=== PATIENT | female | born 1925 | race Caucasian/White ===

== ENCOUNTER 2017-01-26 21:26 | Emergency (ER) | payer MEDICARE, BC ==
[2017-01-26] MEDS ORDERED: Albuterol 0.083% 2.5 MG/3 ML Neb Soln NEB ONE ×2 (22:18→22:56)
--- NOTE | 2017-01-26 22:22 | EDM.PDOC ---
[id number]: PNEUMONIA Time Seen by Provider: 01/26/17 22:16 Source of Information: Reports: Patient, Family History Limitations: Reports: No Limitations - History of Present Illness INITIAL COMMENTS - FREE TEXT/NARRATIVE: pt gets dehydrated easily. She has a bad cough with alot of congestion. Onset: Gradual Duration: Day(s):, Getting Worse Location: Reports: Chest, Other (pt is feeling sob. ) Associated Symptoms: Reports: Cough, Fever/Chills, Shortness of Breath - Related Data Allergies Allergy/AdvReac Type Severity Reaction Status Date / Time Penicillins Allergy Rash Verified 01/26/17 22:00 Home Meds: Home Meds Allopurinol 300 mg PO DAILY 04/01/14 [History] Calcitonin ([place]) [Miacalcin Nasal [place]] 1 spray NS DAILY 04/01/14 [History] Cholecalciferol (Vitamin D3) [Vitamin D3] 2,000 unit PO DAILY 04/01/14 [History] Colesevelam [Welchol] 0.5 mg PO BID 04/01/14 [History] Flaxseed Oil [Flax Oil] 1,000 mg PO DAILY 04/01/14 [History] Metoprolol Tartrate 50 mg PO DAILY 04/01/14 [History] Mv, Min #36/Iron,Carbonyl/FA [Geritol Complete Tablet] 1 each PO DAILY 04/01/14 [History] [place]-3 Fatty Acids/Fish Oil [Fish Oil 1,200 mg Softgel] 1 each PO DAILY [History] Triamterene/Hydrochlorothiazid [Triamterene-HCTZ 75-50 MG] 0.5 each PO DAILY [History] Acetaminophen/HYDROcodone [[place] 325-5 MG] 1 - 2 tab PO Q6H PRN #30 tab [Rx] Garlic 100 mg PO DAILY 08/05/14 [History] Lisinopril 10 mg PO DAILY 08/05/14 [History] Albuterol [IMW: Albuterol HFA] 2 puff INH QID PRN 01/27/17 [History] Social & Family History - Tobacco Use Smoking Status *Q: Former Smoker Years of Tobacco use: 30 Used Tobacco, but Quit: Yes Month Tobacco Last Used: 30yrs Second Hand Smoke Exposure: No - Caffeine Use Caffeine Use: Reports: Coffee - Alcohol Use Days Per Week of Alcohol Use: 0 Number of Drinks Per Day: 2 Total Drinks Per Week: 0 - Recreational Drug Use Recreational Drug Use: No ED ROS GENERAL - Review of Systems Review Of Systems: See Below Constitutional: Reports: Fever, Chills, Malaise HEENT: Reports: No Symptoms Respiratory: Reports: Shortness of Breath, Wheezing Cardiovascular: Reports: No Symptoms Endocrine: Reports: No Symptoms GI/Abdominal: Reports: No Symptoms : Reports: No Symptoms ED EXAM, GENERAL - Physical Exam Exam: See Below Free Text/Narrative:: Pt arrived feeling sob and coughing alot for the past 2 days. Exam Limited By: No Limitations General Appearance: Alert, Mild Distress Ears: Normal TMs Nose: Normal Inspection Throat/Mouth: Normal Inspection Head: Atraumatic Neck: Normal Inspection Respiratory/Chest: Decreased Breath Sounds, Rales, Wheezing Cardiovascular: Regular Rate, Rhythm GI/Abdominal: Soft, Non-Tender Rectal (Female) Exam: Deferred Back Exam: Normal Inspection Extremities: Normal Inspection, Other ( no sig edema. ) Neurological: Alert, Oriented, Normal Cognition Course - Vital Signs Last Recorded V/S: Last Vital Signs Temp 38.3 C H 01/26/17 22:54 Pulse 117 H 01/26/17 22:51 Resp 20 01/26/17 22:51 BP 144/55 H 01/27/17 00:20 Pulse Ox 95 01/26/17 22:51 - Orders/Labs/Meds Labs: Laboratory Tests 01/26/17 01/26/17 01/26/17 Range/Units 22:24 22:24 23:00 WBC 12.1 H (4.5-11.0) K/uL RBC 3.74 (3.30-5.50) M/uL Hgb 10.6 L (12.0-15.0) g/dL Hct 32.2 L (36.0-48.0) % MCV 86 (80-98) fL MCH 28 (27-31) pg MCHC 33 (32-36) % Plt Count 170 (150-400) K/uL Neut % (Auto) 84 H (36-66) % Lymph % (Auto) 9 L (24-44) % [place] % (Auto) 7 H (2-6) % Eos % (Auto) 0 L (2-4) % Baso % (Auto) 0 (0-1) % Sodium 134 L (140-148) mmol/L Potassium 4.0 (3.6-5.2) mmol/L Chloride 98 L (100-108) mmol/L Carbon Dioxide 27 (21-32) mmol/L Anion Gap 13.0 (5.0-14.0) mmol/L BUN 33 H (7-18) mg/dL Creatinine 1.1 H D (0.6-1.0) mg/dL Est Cr Clr Drug Dosing 27.42 mL/min Estimated GFR (MDRD) 47 L (>60) Glucose 175 H (74-106) mg/dL Calcium 9.5 (8.5-10.1) mg/dL Total Bilirubin 0.7 (0.2-1.0) mg/dL AST 15 (15-37) U/L ALT 19 (12-78) U/L Alkaline Phosphatase 90 (46-116) U/L Egb-[id number] Pept 1545 H (5-450) pg/mL Total Protein 7.2 (6.4-8.2) g/dL Albumin 3.1 L (3.4-5.0) g/dL Globulin 4.1 H (2.3-3.5) g/dL Albumin/Globulin Ratio 0.8 L (1.2-2.2) Urine Color Urine Appearance Urine pH (4.5-8.0) Ur Specific [place] (1.008-1.030) Urine Protein (NEGATIVE) mg/dL Urine Glucose (UA) (NEGATIVE) mg/dL Urine Ketones (NEGATIVE) mg/dL Urine Occult Blood (NEGATIVE) Urine Nitrite (NEGATIVE) Urine Bilirubin (NEGATIVE) Urine Urobilinogen (NORMAL) mg/dL Ur Leukocyte Esterase (NEGATIVE) Urine RBC (0-5) Urine WBC (0-5) Ur Epithelial Cells Amorphous Sediment Urine Bacteria Urine Mucus 01/27/17 Range/Units 00:57 WBC (4.5-11.0) K/uL RBC (3.30-5.50) M/uL Hgb (12.0-15.0) g/dL Hct (36.0-48.0) % MCV (80-98) fL MCH (27-31) pg MCHC (32-36) % Plt Count (150-400) K/uL Neut % (Auto) (36-66) % Lymph % (Auto) (24-44) % [place] % (Auto) (2-6) % Eos % (Auto) (2-4) % Baso % (Auto) (0-1) % Sodium (140-148) mmol/L Potassium (3.6-5.2) mmol/L Chloride (100-108) mmol/L Carbon Dioxide (21-32) mmol/L Anion Gap (5.0-14.0) mmol/L BUN (7-18) mg/dL Creatinine (0.6-1.0) mg/dL Est Cr Clr Drug Dosing mL/min Estimated GFR (MDRD) (>60) Glucose (74-106) mg/dL Calcium (8.5-10.1) mg/dL Total Bilirubin (0.2-1.0) mg/dL AST (15-37) U/L ALT (12-78) U/L Alkaline Phosphatase (46-116) U/L Ric-H-Lgvbklacsji Pept (5-450) pg/mL Total Protein (6.4-8.2) g/dL Albumin (3.4-5.0) g/dL Globulin (2.3-3.5) g/dL Albumin/Globulin Ratio (1.2-2.2) Urine Color Yellow Urine Appearance Clear Urine pH 5.0 (4.5-8.0) Ur Specific [place] 1.015 (1.008-1.030) Urine Protein Negative (NEGATIVE) mg/dL Urine Glucose (UA) Normal (NEGATIVE) mg/dL Urine Ketones 15 H (NEGATIVE) mg/dL Urine Occult Blood Trace (NEGATIVE) Urine Nitrite Negative (NEGATIVE) Urine Bilirubin Negative (NEGATIVE) Urine Urobilinogen Normal (NORMAL) mg/dL Ur Leukocyte Esterase Negative (NEGATIVE) Urine RBC 0-5 (0-5) Urine WBC 0-5 (0-5) Ur Epithelial Cells Not seen Amorphous Sediment Moderate Urine Bacteria Not seen Urine Mucus Few Meds: Medications Discontinued Medications Generic Name Dose Route Start Last Admin Trade Name Freq PRN Reason Stop Dose Admin Acetaminophen 650 mg 01/26/17 22:40 01/26/17 22:54 Tylenol PO 01/26/17 22:41 650 mg NOW ONE Administration Albuterol 2.5 mg 01/26/17 22:18 01/26/17 22:23 Proventil Neb Soln NEB 01/26/17 22:19 2.5 mg ONETIME ONE Administration Albuterol 2.5 mg 01/26/17 22:56 01/26/17 23:35 Proventil Neb Soln NEB 01/26/17 22:57 2.5 mg ONETIME ONE Administration Furosemide 40 mg 01/26/17 23:58 01/27/17 00:20 Lasix IVPUSH 01/26/17 23:59 40 mg ONETIME ONE Administration Ceftriaxone Sodium 1 gm/ 50 mls @ 100 mls/hr 01/26/17 22:55 01/26/17 23:35 Sodium Chloride IV 01/26/17 23:24 100 mls/hr ONETIME ONE Administration Methylprednisolone Sodium Succinate 125 mg 01/26/17 22:55 01/26/17 23:35 Solu-Medrol IVPUSH 01/26/17 22:56 125 mg ONETIME ONE Administration Sodium Chloride 10 ml 01/26/17 22:53 01/26/17 23:35 Saline Flush FLUSH 10 ml ASDIRECTED PRN Administration Keep Vein Open - Re-Assessments/Exams Free Text/Narrative Re-Assessment/Exam: 01/26/17 22:46 pt was found to have a mildly elevated wbc. Her influ a and b are neg. chest xray reveals shows alot of chronic changes but it is not alot different then her old film. 01/26/17 22:54 01/27/17 00:24 pt was found to have mild elevation in the bnp. She was given lasix 40mg iv. She was also given solumedrol 125 iv. She had 2 nebs while she was here. She was given rocephen 1 gm iv. Pt was doing better by the time she left the Er. Departure - Departure Time of Disposition: 01:15 Disposition: Home, Self-Care 01 Condition: fair Clinical Impression: Bronchitis, Bronchospasm - Discharge Information Instructions: Acute Bronchitis, [id number] Referrals: Oleksandr Meneses MD [Primary Care Provider] - Forms: ED Department Discharge Care Plan Goals: albuterol inhaler 2 puffs qid, with a small education specialist,, rtc tomorrow for a rocephen injection. Pt does not want to be transfered and there are no beds available tonight. The son will stay with her and will bring her back if not doing well Pt will be rechecked tomorrow when she returns for her antibiotic. robitussin ac 2 tsp q6h prn for cough. If pt ids doing well tomorrow se could be placed on zithromax for the next week.
[2017-01-26] MEDS ORDERED: Acetaminophen 325 MG Tab PO ONE (22:40)
[2017-01-26] MEDS ORDERED: Sodium Chloride 0.9% 10 ML Syringe FLUSH PRN (22:53)
[2017-01-26] MEDS ORDERED: methylPREDNISolone Sodium Succinate 125 MG/2 ML SDV IVPUSH ONE (22:55)
[2017-01-26] MEDS ORDERED: cefTRIAXone 1 GM in Sodium Chloride 0.9% 50 ML IV ONE (22:55)
[2017-01-26] MEDS ORDERED: Furosemide 40 MG/4 ML VIAL IVPUSH ONE (23:58)
[2017-01-27 00:20] VITALS: BP 144/55
--- NOTE | 2017-01-29 08:46 | CR ---
Chest 2V HISTORY: cough sob FINDINGS: Lungs are mildly hyperinflated suggesting a component of COPD. No acute infiltrate is iden tified. Cardiomediastinal silhouette is within normal limits. Atherosclerotic aorta is redemonstrate d. There is no vascular redistribution or pleural fluid. Left-sided central venous Port-A-Cath is st able. The tip is in the left innominate vein. Bony structures are diffusely osteopenic. Old plate an d screw fixation proximal right humerus fracture is noted. Possible bilateral mastectomy changes. IMPRESSION: Mild hyperinflation suggests a component of COPD. No acute infiltrate or other acute ginger st abnormality is identified. Bilateral mastectomy changes. No definite evidence for metastatic dise ase. Remainder of the findings as above.
== END 2017-01-27 01:14 | disposition home or self-care (01) ==
LOC: JP.ED 21:26
DX: J40 Bronchitis, not specified as acute or chronic (principal); J98.01 Acute bronchospasm; Z79.899 Other long term (current) drug therapy; Z88.0 Allergy status to penicillin; Z87.891 Personal history of nicotine dependence; J18.9 Pneumonia, unspecified organism; I10 Essential (primary) hypertension; K21.9 Gastro-esophageal reflux disease without esophagitis; M19.90 Unspecified osteoarthritis, unspecified site; M10.9 Gout, unspecified; E11.9 Type 2 diabetes mellitus without complications; Z98.49 Cataract extraction status, unspecified eye; Z85.41 Personal history of malignant neoplasm of cervix uteri; Z85.3 Personal history of malignant neoplasm of breast; Z85.820 Personal history of malignant melanoma of skin; Z85.72 Personal history of non-Hodgkin lymphomas; Z90.13 Acquired absence of bilateral breasts and nipples; Z90.722 Acquired absence of ovaries, bilateral; Z86.2 Personal history of diseases of the blood and blood-forming organs and certain disorders involving the immune mechanism
CPT/HCPCS: 36415; 71020; 80053; 81001; 83880; 85025; 87040; 87804; 93005; 96365; 96375; 99283; 99284; A9270; J0696; J1940; J2930; J7050; 93010

== ENCOUNTER 2017-01-27 11:14 | Emergency (ER) | payer MEDICARE, BC ==
[2017-01-27] MEDS ORDERED: cefTRIAXone 1 GM in Sodium Chloride 0.9% 50 ML IV ONE (11:30)
[2017-01-27 11:38] VITALS: BP 133/65
--- NOTE | 2017-01-27 12:06 | EDM.PDOC ---
ED HPI GENERAL MEDICAL PROBLEM - General Chief Complaint: Respiratory Problem Stated Complaint: RECHECK/ANTIBIOTICS Time Seen by Provider: 01/27/17 11:58 Source of Information: Reports: Patient, Family, Old Records, RN Notes Reviewed History Limitations: Reports: No Limitations - History of Present Illness INITIAL COMMENTS - FREE TEXT/NARRATIVE: 89-year-old female returns for followup today she presented emergency department last night complaints of shortness of breath and initial evaluation showed mildly elevated white count no clear pneumonia identified on chest x-ray BNP mildly elevated at 1500 she did receive 1 g Rocephin as well as 40 mg Lasix. She reports morning she feels 1000 times better than last night she is now developed a productive cough but she is able to take a deep breath no fevers - Related Data Allergies Allergy/AdvReac Type Severity Reaction Status Date / Time Penicillins Allergy Rash Verified 01/26/17 22:00 Home Meds: Home Meds Allopurinol 300 mg PO DAILY 04/01/14 [History] Calcitonin ([place]) [Miacalcin Nasal [place]] 1 spray NS DAILY 04/01/14 [History] Cholecalciferol (Vitamin D3) [Vitamin D3] 2,000 unit PO DAILY 04/01/14 [History] Colesevelam [Welchol] 0.5 mg PO BID 04/01/14 [History] Flaxseed Oil [Flax Oil] 1,000 mg PO DAILY 04/01/14 [History] Metoprolol Tartrate 50 mg PO DAILY 04/01/14 [History] Mv, Min #36/Iron,Carbonyl/FA [Geritol Complete Tablet] 1 each PO DAILY 04/01/14 [History] [place]-3 Fatty Acids/Fish Oil [Fish Oil 1,200 mg Softgel] 1 each PO DAILY [History] Triamterene/Hydrochlorothiazid [Triamterene-HCTZ 75-50 MG] 0.5 each PO DAILY [History] Acetaminophen/HYDROcodone [[place] 325-5 MG] 1 - 2 tab PO Q6H PRN #30 tab [Rx] Garlic 100 mg PO DAILY 08/05/14 [History] Lisinopril 10 mg PO DAILY 08/05/14 [History] Albuterol [IMW: Albuterol HFA] 2 puff INH QID PRN 01/27/17 [History] Past Medical History HEENT History: Reports: Cataract, Macular Degeneration Cardiovascular History: Reports: Hypertension Gastrointestinal History: Reports: Chronic Diarrhea, GERD 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) Other OB/BYN History: cervical cancer Musculoskeletal History: Reports: Gout, Osteoarthritis, Osteoporosis Neurological History: Reports: Headaches, Chronic Endocrine/Metabolic History: Reports: Diabetes, Type II Hematologic History: Reports: Anemia, Iron Deficiency Oncologic (Cancer) History: Reports: Breast, Cervix, Lymphoma, Malignant Melanoma - Infectious Disease History Infectious Disease History: Reports: Chicken Pox, Measles - Past Surgical History GI Surgical History: Reports: Colonoscopy Female Surgical History: Reports: Salpingo-Oophorectomy, Other (See Below) Other Female Surgeries/Procedures: bilateral mastectomy Oncologic Surgical History: Reports: Mastectomy Social & Family History - Tobacco Use Smoking Status *Q: Former Smoker Years of Tobacco use: 30 Used Tobacco, but Quit: Yes Month Tobacco Last Used: 1979 Second Hand Smoke Exposure: No - Caffeine Use Caffeine Use: Reports: Coffee - Alcohol Use Days Per Week of Alcohol Use: 0 Number of Drinks Per Day: 2 Total Drinks Per Week: 0 - Recreational Drug Use Recreational Drug Use: No ED ROS GENERAL - Review of Systems Review Of Systems: See Below Constitutional: Denies: Fever, Chills HEENT: Reports: No Symptoms Respiratory: Reports: Cough, Sputum. Denies: Shortness of Breath Cardiovascular: Reports: No Symptoms GI/Abdominal: Reports: No Symptoms : Reports: No Symptoms ED EXAM, GENERAL - Physical Exam Exam: See Below Exam Limited By: No Limitations General Appearance: Alert, WD/WN, No Apparent Distress Respiratory/Chest: No Respiratory Distress, No Accessory Muscle Use, Chest Non- Tender, Rhonchi (Mainly upper airway) Course - Vital Signs Last Recorded V/S: Last Vital Signs Temp 96.8 F 01/27/17 11:29 Pulse 125 H 01/27/17 11:29 Resp 19 01/27/17 11:29 BP 133/65 01/27/17 11:29 Pulse Ox 93 L 01/27/17 11:29 - Orders/Labs/Meds Meds: Medications Discontinued Medications Generic Name Dose Route Start Last Admin Trade Name Freq PRN Reason Stop Dose Admin Ceftriaxone Sodium 1 gm/ 50 mls @ 100 mls/hr 01/27/17 11:30 Sodium Chloride IV 01/27/17 11:59 ONETIME ONE Departure - Departure Time of Disposition: 12:05 Disposition: Home, Self-Care 01 Condition: good Clinical Impression: Pneumonia Qualifiers: Pneumonia type: due to unspecified organism Laterality: unspecified laterality Lung location: unspecified part of lung Qualified Code(s): J18.9 - Pneumonia, unspecified organism - Discharge Information Forms: ED Department Discharge Additional Instructions: Take full course of antibiotics, Please followup with your primary care provider in 3-5 days if not better, please call return to the emergency department with worsening of symptoms. - Assessment/Plan Plan: Assessment Acuity = acute Site and laterality = community-acquired pneumonia Etiology = suspect bacterial cause Manifestations = cough, sputum production Location of injury = home Lab values = none Plan Continue with the Rocephin already ordered to be placed on azithromycin, followup with primary care in 3-5 days for reevaluation Patient was in agreement with the plan all questions were answered, they were instructed to return to the emergency department or call for worsening symptoms. This note was dictated using [employer] voice recognition software please call with any questions.
== END 2017-01-27 13:17 | disposition home or self-care (01) ==
LOC: JP.ED 11:14
DX: J18.9 Pneumonia, unspecified organism (principal); I10 Essential (primary) hypertension; K21.9 Gastro-esophageal reflux disease without esophagitis; M19.90 Unspecified osteoarthritis, unspecified site; M10.9 Gout, unspecified; E11.9 Type 2 diabetes mellitus without complications; Z88.0 Allergy status to penicillin; Z79.899 Other long term (current) drug therapy; Z98.49 Cataract extraction status, unspecified eye; Z85.41 Personal history of malignant neoplasm of cervix uteri; Z85.3 Personal history of malignant neoplasm of breast; Z85.820 Personal history of malignant melanoma of skin; Z85.72 Personal history of non-Hodgkin lymphomas; Z90.13 Acquired absence of bilateral breasts and nipples; Z90.722 Acquired absence of ovaries, bilateral; Z87.891 Personal history of nicotine dependence; Z86.2 Personal history of diseases of the blood and blood-forming organs and certain disorders involving the immune mechanism
CPT/HCPCS: 93005; 96365; 99283; 99284; J0696; J7050

== ENCOUNTER 2017-02-15 15:12 | Inpatient (IN) | payer MEDICARE, BC ==
--- NOTE | 2017-02-15 16:56 | EDM.PDOC ---
ED HPI GENERAL MEDICAL PROBLEM - General Chief Complaint: Genitourinary Problem Stated Complaint: INFECTION Time Seen by Provider: 02/15/17 16:51 Source of Information: Reports: Patient, Family History Limitations: Reports: No Limitations - History of Present Illness INITIAL COMMENTS - FREE TEXT/NARRATIVE: pt has been very anxious and has been not sleeping and has worried about what her daughter said to her and She can,t stop thinking about that. Onset: Gradual Duration: Day(s): Location: Reports: Other (pt is agitated. ) Associated Symptoms: Reports: Loss of Appetite, Malaise, Weakness, Other ( not sleeping at nite. ) - Related Data Allergies Allergy/AdvReac Type Severity Reaction Status Date / Time Penicillins Allergy Rash Verified 02/15/17 15:45 Home Meds: Home Meds Allopurinol 300 mg PO DAILY 04/01/14 [History] Calcitonin ([place]) [Miacalcin Nasal [place]] 1 spray NS DAILY 04/01/14 [History] Cholecalciferol (Vitamin D3) [Vitamin D3] 2,000 unit PO DAILY 04/01/14 [History] Colesevelam [Welchol] 0.5 mg PO BID 04/01/14 [History] Flaxseed Oil [Flax Oil] 1,000 mg PO DAILY 04/01/14 [History] Metoprolol Tartrate 50 mg PO DAILY 04/01/14 [History] Mv, Min #36/Iron,Carbonyl/FA [Geritol Complete Tablet] 1 each PO DAILY 04/01/14 [History] [place]-3 Fatty Acids/Fish Oil [Fish Oil 1,200 mg Softgel] 1 each PO DAILY [History] Triamterene/Hydrochlorothiazid [Triamterene-HCTZ 75-50 MG] 0.5 each PO DAILY [History] Acetaminophen/HYDROcodone [[place] 325-5 MG] 1 - 2 tab PO Q6H PRN #30 tab [Rx] Garlic 100 mg PO DAILY 08/05/14 [History] Lisinopril 10 mg PO DAILY 08/05/14 [History] Albuterol [IMW: Albuterol HFA] 2 puff INH QID PRN 01/27/17 [History] Pentoxifylline [TRENtal] 400 mg PO TID 02/15/17 [History] Past Medical History HEENT History: Reports: Cataract, Macular Degeneration Cardiovascular History: Reports: Hypertension Gastrointestinal History: Reports: Chronic Diarrhea, GERD Other Genitourinary History: stage 3 kidney disease 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) Other OB/BYN History: cervical cancer Musculoskeletal History: Reports: Gout, Osteoarthritis, Osteoporosis Neurological History: Reports: Headaches, Chronic Endocrine/Metabolic History: Reports: Diabetes, Type II Hematologic History: Reports: Anemia, Iron Deficiency Oncologic (Cancer) History: Reports: Breast, Cervix, Lymphoma, Malignant Melanoma - Infectious Disease History Infectious Disease History: Reports: Chicken Pox, Measles - Past Surgical History GI Surgical History: Reports: Colonoscopy Female Surgical History: Reports: Mastectomy, Salpingo-Oophorectomy, Other ( See Below) Other Female Surgeries/Procedures: bilateral mastectomy Oncologic Surgical History: Reports: Mastectomy Social & Family History - Tobacco Use Smoking Status *Q: Former Smoker Years of Tobacco use: 30 Used Tobacco, but Quit: Yes Month Tobacco Last Used: 1979 Second Hand Smoke Exposure: No - Caffeine Use Caffeine Use: Reports: Coffee - Alcohol Use Days Per Week of Alcohol Use: 0 Number of Drinks Per Day: 2 Total Drinks Per Week: 0 - Recreational Drug Use Recreational Drug Use: No ED ROS GENERAL - Review of Systems Review Of Systems: See Below Constitutional: Reports: Weakness HEENT: Reports: No Symptoms Respiratory: Reports: No Symptoms Cardiovascular: Reports: No Symptoms Endocrine: Reports: No Symptoms GI/Abdominal: Reports: No Symptoms : Reports: No Symptoms, Other (pt is putting out very little urine. ) Musculoskeletal: Reports: No Symptoms Psychiatric: Reports: Agitation, Anxiety, Depression, Other (very upset regarding her family situation. ) ED EXAM, RENAL/ - Physical Exam Exam: See Below Text/Narrative:: pt is tearful and anxious. She is not resting at nite. Her rt leg continues to be swollen. Exam Limited By: No Limitations General Appearance: Alert, Anxious Ears: Normal TMs Nose: Normal Inspection Throat/Mouth: Normal Inspection Head: Atraumatic Neck: Normal Inspection Respiratory/Chest: No Respiratory Distress Cardiovascular: Regular Rate, Rhythm GI/Abdominal: Soft, Non-Tender (Female) Exam: Deferred Rectal (Female) Exam: Deferred Back Exam: Normal Inspection Extremities: Normal Inspection Neurological: Alert, Oriented, Normal Cognition, Other (pt is depressed and tearful. ) Course - Vital Signs Last Recorded V/S: Last Vital Signs Temp 35.8 C 02/15/17 15:51 Pulse 68 02/15/17 17:44 Resp 18 02/15/17 17:44 BP 143/61 H 02/15/17 17:44 Pulse Ox 98 02/15/17 17:44 - Orders/Labs/Meds Orders: Active Orders 24 hr Category Date Time Status PRO B-TYPE NATRIUR PEPT,BNPPRO [CHEM] Urgent Lab 02/15/17 17:40 Ordered Sodium Chloride 0.9% [Normal Saline] 1,000 ml Med 02/15/17 17:45 Active IV ASDIRECTED Medication Orders Sodium Chloride (Normal Saline) 1,000 mls @ 250 mls/hr IV ASDIRECTED ZHENG Last Admin: 02/15/17 17:49 Dose: 250 mls/hr Labs: Laboratory Tests 02/15/17 02/15/17 02/15/17 Range/Units 16:32 16:32 16:44 WBC 8.7 (4.5-11.0) K/uL RBC 3.62 (3.30-5.50) M/uL Hgb 10.2 L (12.0-15.0) g/dL Hct 30.3 L (36.0-48.0) % MCV 84 (80-98) fL MCH 28 (27-31) pg MCHC 34 (32-36) % Plt Count 237 (150-400) K/uL Neut % (Auto) 65 (36-66) % Lymph % (Auto) 25 (24-44) % [place] % (Auto) 10 H (2-6) % Eos % (Auto) 0 L (2-4) % Baso % (Auto) 0 (0-1) % Sodium 128 L (140-148) mmol/L Potassium 3.8 (3.6-5.2) mmol/L Chloride 93 L (100-108) mmol/L Carbon Dioxide 26 (21-32) mmol/L Anion Gap 12.8 (5.0-14.0) mmol/L BUN 36 H (7-18) mg/dL Creatinine 1.9 H D (0.6-1.0) mg/dL Est Cr Clr Drug Dosing 15.15 mL/min Estimated GFR (MDRD) 25 L (>60) Glucose 112 H (74-106) mg/dL Calcium 9.9 (8.5-10.1) mg/dL Total Bilirubin 0.3 D (0.2-1.0) mg/dL AST 35 D (15-37) U/L ALT 31 (12-78) U/L Alkaline Phosphatase 95 (46-116) U/L Total Protein 6.7 (6.4-8.2) g/dL Albumin 2.9 L (3.4-5.0) g/dL Globulin 3.8 H (2.3-3.5) g/dL Albumin/Globulin Ratio 0.8 L (1.2-2.2) Urine Color Yellow Urine Appearance Clear Urine pH 5.0 (4.5-8.0) Ur Specific [place] 1.010 (1.008-1.030) Urine Protein Negative (NEGATIVE) mg/dL Urine Glucose (UA) Normal (NEGATIVE) mg/dL Urine Ketones Negative (NEGATIVE) mg/dL Urine Occult Blood Negative (NEGATIVE) Urine Nitrite Negative (NEGATIVE) Urine Bilirubin Negative (NEGATIVE) Urine Urobilinogen Normal (NORMAL) mg/dL Ur Leukocyte Esterase Negative (NEGATIVE) Urine RBC 0-5 (0-5) Urine WBC 0-5 (0-5) Ur Epithelial Cells Rare Amorphous Sediment Few Urine Bacteria Not seen Urine Mucus Not seen Meds: Medications Generic Name Dose Route Start Last Admin Trade Name Freq PRN Reason Stop Dose Admin Sodium Chloride 1,000 mls @ 250 mls/hr 02/15/17 17:45 02/15/17 17:49 Normal Saline IV 250 mls/hr ASDIRECTED [facility] Administration - Re-Assessments/Exams Free Text/Narrative Re-Assessment/Exam: 02/15/17 17:56 pt has not been voiding. as usual. The pt usually has a pad that is wet every hour . Today she has had 2 scant pads. She has a history of CHF if her lasix is stopped. She has been agitated and wants to be in constant motion. Her urine looks good. -- the infection appears to be clear. Her na is 128. Her creatnine is 1.9 and previously was 1. Her Gfr is also very low. Pt appears very depressed and states she wants to go on a antidepressant. She also feels she needs some PT to get her strength back. Departure - Departure Time of Disposition: 18:02 Disposition: Home, Self-Care 01 Condition: fair Clinical Impression: Depression, Dehydration, Anemia - Discharge Information Forms: ED Department Discharge Care Plan Goals: admit to Dr Molina. - My Orders Last 24 Hours: My Active Orders 02/15/17 17:40 PRO B-TYPE NATRIUR PEPT,BNPPRO [CHEM] Urgent 02/15/17 17:45 Sodium Chloride 0.9% [Normal Saline] 1,000 ml IV ASDIRECTED - Assessment/Plan Last 24 Hours: My Active Orders 02/15/17 17:40 PRO B-TYPE NATRIUR PEPT,BNPPRO [CHEM] Urgent 02/15/17 17:45 Sodium Chloride 0.9% [Normal Saline] 1,000 ml IV ASDIRECTED
[2017-02-15] MEDS ORDERED: Sodium Chloride 0.9% 1,000 ML IV SCH ×2 (17:45→20:08)
--- NOTE | 2017-02-15 19:16 | PCM.HP ---
H&P History of Present Illness - General Date of Service: 02/15/17 Admit Problem/Dx: Admission Diagnosis/Problem Admission Diagnosis/Problem Dehydration Source of Information: Patient, Family, Old Records, Provider, RN Notes Reviewed History Limitations: Reports: No Limitations - History of Present Illness Initial Comments - Free Text/Narative: Patient is an 89-year-old woman who is admitted through the emergency department for further management of dehydration and acute on chronic renal insufficiency. She's been struggling with symptoms of depression for a few months but significantly worse over the past month. Symptoms have progressed the point that she is ruminating much of the time and has become more agitated and paranoid. She is been unable to sleep the past several nights and spends the night pacing in her apartment. She reports symptoms of depression as well as increase in anxiety, lack of interest in her usual activities, anhedonia, decreased appetite and oral intake of liquids. She was seen in the emergency department a week ago and found to have a urinary tract infection, she is currently treated with antibiotics. Evaluation today showed no evidence of ongoing infection or significant metabolic abnormalities. Her creatinine is elevated from baseline of 1.9 with an estimated GFR of 2.5. - Related Data Allergies/Adverse Reactions: Allergies Allergy/AdvReac Type Severity Reaction Status Date / Time Penicillins Allergy Rash Verified 02/15/17 15:45 Home Medications: Home Meds Allopurinol 300 mg PO DAILY 04/01/14 [History] Calcitonin (Aneta) [Miacalcin Nasal [place]] 1 spray NS DAILY 04/01/14 [History] Cholecalciferol (Vitamin D3) [Vitamin D3] 2,000 unit PO DAILY 04/01/14 [History] Colesevelam [Welchol] 0.5 mg PO BID 04/01/14 [History] Flaxseed Oil [Flax Oil] 1,000 mg PO DAILY 04/01/14 [History] Metoprolol Tartrate 50 mg PO DAILY 04/01/14 [History] Mv, Min #36/Iron,Carbonyl/FA [Geritol Complete Tablet] 1 each PO DAILY 04/01/14 [History] [place]-3 Fatty Acids/Fish Oil [Fish Oil 1,200 mg Softgel] 1 each PO DAILY [History] Triamterene/Hydrochlorothiazid [Triamterene-HCTZ 75-50 MG] 0.5 each PO DAILY [History] Acetaminophen/HYDROcodone [[place] 325-5 MG] 1 - 2 tab PO Q6H PRN #30 tab [Rx] Garlic 100 mg PO DAILY 08/05/14 [History] Lisinopril 10 mg PO DAILY 08/05/14 [History] Albuterol [IMW: Albuterol HFA] 2 puff INH QID PRN 01/27/17 [History] Pentoxifylline [TRENtal] 400 mg PO TID 02/15/17 [History] Sulfamethoxazole/Trimethoprim [Bactrim Ds Tablet] 1 tab PO BID 02/15/17 [History ] Past Medical History HEENT History: Reports: Cataract, Macular Degeneration Cardiovascular History: Reports: Hypertension Gastrointestinal History: Reports: Chronic Diarrhea, GERD Other Genitourinary History: stage 3 kidney disease [employer] History: Reports: Other (See Below) Other OB/BYN History: cervical cancer Musculoskeletal History: Reports: Gout, Osteoarthritis, Osteoporosis Neurological History: Reports: Headaches, Chronic Endocrine/Metabolic History: Reports: Diabetes, Type II Hematologic History: Reports: Anemia, Iron Deficiency Oncologic (Cancer) History: Reports: Breast, Cervix, Lymphoma, Malignant Melanoma - Infectious Disease History Infectious Disease History: Reports: Chicken Pox, Measles - Past Surgical History GI Surgical History: Reports: Colonoscopy Female Surgical History: Reports: Mastectomy, Salpingo-Oophorectomy, Other ( See Below) Other Female Surgeries/Procedures: bilateral mastectomy Oncologic Surgical History: Reports: Mastectomy Social & Family History - Tobacco Use Smoking Status *Q: Former Smoker Years of Tobacco use: 30 Used Tobacco, but Quit: Yes Month Tobacco Last Used: 1979 Second Hand Smoke Exposure: No - Caffeine Use Caffeine Use: Reports: Coffee - Alcohol Use Days Per Week of Alcohol Use: 0 Number of Drinks Per Day: 2 Total Drinks Per Week: 0 - Recreational Drug Use Recreational Drug Use: No H&P Review of Systems - Review of Systems: Review Of Systems: See Below General: Reports: Weakness. Denies: Fever, Chills, Diaphoresis HEENT: Reports: No Symptoms Pulmonary: Reports: No Symptoms Cardiovascular: Reports: No Symptoms Gastrointestinal: Reports: No Symptoms Genitourinary: Reports: No Symptoms Musculoskeletal: Reports: No Symptoms Skin: Reports: No Symptoms Psychiatric: Reports: Depression, Anxiety, Agitation, Other (Paranoid ideation) Neurological: Reports: No Symptoms Hematologic/Lymphatic: Reports: No Symptoms Immunologic: Reports: No Symptoms Exam - Exam Exam: See Below - Vital Signs Vital Signs: Last Vital Signs Temp 96.4 F 02/15/17 15:51 Pulse 68 02/15/17 17:44 Resp 18 02/15/17 17:44 BP 143/61 H 02/15/17 17:44 Pulse Ox 98 02/15/17 17:44 Weight: 135 lb - Exam Quality Assessment: DVT Prophylaxis General: Alert, Oriented, Cooperative, Moderate Distress HEENT: Conjunctiva Clear, EOMI, Nares Patent, Normal Nasal Septum, Posterior Pharynx Clear, Pupils Equal, Pupils Reactive. No: Hearing Intact, Mucosa Moist & [place] Neck: Supple, Trachea Midline, +2 Carotid Pulse wo Bruit Lungs: Clear to Auscultation, Normal Respiratory Effort Cardiovascular: Regular Rate, Regular Rhythm, Normal S1, Normal S2. No: Systolic Murmur, Diastolic Murmur Abdomen: Normal Bowel Sounds, Soft. No: Organomegaly, Tenderness Back Exam: Other (Scoliosis) Extremities: Edema Skin: Warm, Dry, Intact Neurological: Cranial Nerves Intact, Strength Equal Bilateral, Normal Speech, Normal Tone, Sensation Intact. No: Focal Deficit Neuro Extensive - Mental Status: Alert, Oriented x3, Normal Mood/Affect, Normal Cognition, Memory Intact Psychiatric: Anxious, Depressed, Agitated - Patient Data Lab Results last 24 hrs: Laboratory Results - last 24 hr 02/15/17 02/15/17 02/15/17 Range/Units 16:32 16:32 16:44 WBC 8.7 (4.5-11.0) K/uL RBC 3.62 (3.30-5.50) M/uL Hgb 10.2 L (12.0-15.0) g/dL Hct 30.3 L (36.0-48.0) % MCV 84 (80-98) fL MCH 28 (27-31) pg MCHC 34 (32-36) % Plt Count 237 (150-400) K/uL Neut % (Auto) 65 (36-66) % Lymph % (Auto) 25 (24-44) % [place] % (Auto) 10 H (2-6) % Eos % (Auto) 0 L (2-4) % Baso % (Auto) 0 (0-1) % Sodium 128 L (140-148) mmol/L Potassium 3.8 (3.6-5.2) mmol/L Chloride 93 L (100-108) mmol/L Carbon Dioxide 26 (21-32) mmol/L Anion Gap 12.8 (5.0-14.0) mmol/L BUN 36 H (7-18) mg/dL Creatinine 1.9 H D (0.6-1.0) mg/dL Est Cr Clr Drug Dosing 15.15 mL/min Estimated GFR (MDRD) 25 L (>60) Glucose 112 H (74-106) mg/dL Calcium 9.9 (8.5-10.1) mg/dL Total Bilirubin 0.3 D (0.2-1.0) mg/dL AST 35 D (15-37) U/L ALT 31 (12-78) U/L Alkaline Phosphatase 95 (46-116) U/L Vlj-M-Fxsjwljdjgw Pept (5-450) pg/mL Total Protein 6.7 (6.4-8.2) g/dL Albumin 2.9 L (3.4-5.0) g/dL Globulin 3.8 H (2.3-3.5) g/dL Albumin/Globulin Ratio 0.8 L (1.2-2.2) Urine Color Yellow Urine Appearance Clear Urine pH 5.0 (4.5-8.0) Ur Specific [place] 1.010 (1.008-1.030) Urine Protein Negative (NEGATIVE) mg/dL Urine Glucose (UA) Normal (NEGATIVE) mg/dL Urine Ketones Negative (NEGATIVE) mg/dL Urine Occult Blood Negative (NEGATIVE) Urine Nitrite Negative (NEGATIVE) Urine Bilirubin Negative (NEGATIVE) Urine Urobilinogen Normal (NORMAL) mg/dL Ur Leukocyte Esterase Negative (NEGATIVE) Urine RBC 0-5 (0-5) Urine WBC 0-5 (0-5) Ur Epithelial Cells Rare Amorphous Sediment Few Urine Bacteria Not seen Urine Mucus Not seen 02/15/17 Range/Units 17:40 WBC (4.5-11.0) K/uL RBC (3.30-5.50) M/uL Hgb (12.0-15.0) g/dL Hct (36.0-48.0) % MCV (80-98) fL MCH (27-31) pg MCHC (32-36) % Plt Count (150-400) K/uL Neut % (Auto) (36-66) % Lymph % (Auto) (24-44) % [place] % (Auto) (2-6) % Eos % (Auto) (2-4) % Baso % (Auto) (0-1) % Sodium (140-148) mmol/L Potassium (3.6-5.2) mmol/L Chloride (100-108) mmol/L Carbon Dioxide (21-32) mmol/L Anion Gap (5.0-14.0) mmol/L BUN (7-18) mg/dL Creatinine (0.6-1.0) mg/dL Est Cr Clr Drug Dosing mL/min Estimated GFR (MDRD) (>60) Glucose (74-106) mg/dL Calcium (8.5-10.1) mg/dL Total Bilirubin (0.2-1.0) mg/dL AST (15-37) U/L ALT (12-78) U/L Alkaline Phosphatase (46-116) U/L Mtg-F-Qkldhexvukn Pept 2126 H (5-450) pg/mL Total Protein (6.4-8.2) g/dL Albumin (3.4-5.0) g/dL Globulin (2.3-3.5) g/dL Albumin/Globulin Ratio (1.2-2.2) Urine Color Urine Appearance Urine pH (4.5-8.0) Ur Specific [place] (1.008-1.030) Urine Protein (NEGATIVE) mg/dL Urine Glucose (UA) (NEGATIVE) mg/dL Urine Ketones (NEGATIVE) mg/dL Urine Occult Blood (NEGATIVE) Urine Nitrite (NEGATIVE) Urine Bilirubin (NEGATIVE) Urine Urobilinogen (NORMAL) mg/dL Ur Leukocyte Esterase (NEGATIVE) Urine RBC (0-5) Urine WBC (0-5) Ur Epithelial Cells Amorphous Sediment Urine Bacteria Urine Mucus Result Diagrams: 02/15/17 16:32 02/15/17 16:32 *Q Meaningful Use (ADM) - VTE *Q VTE Criteria *Q: - VTE Risk Assess *Q Each Risk Factor Represents 1 Point: Swollen Legs, Current Total Score 1 Point Risk Factors: 1 Each Risk Factor Represents 2 Points: Previous Malignancy Total Score 2 Point Risk Factors: 2 Each Risk Factor Represents 3 Points: Age 75 Years or Greater Total Score 3 Point Risk Factors: 3 Each Risk Factor Represents 5 Points: None Total Score 5 Point Risk Factors: 0 Venous Thromboembolism Risk Factor Score *Q: 6 - Stroke *Q Stroke Criteria *Q: - AMI *Q AMI Criteria *Q: Problem List Initiated/Reviewed/Updated: Yes Orders Last 24hrs: Active Orders 24 hr Category Date Time Status Patient Status Manage Transfer [TRANSFER] Routine ADT 02/15/17 18:57 Ordered Sodium Chloride 0.9% [Normal Saline] 1,000 ml Med 02/15/17 17:45 Active IV ASDIRECTED Resuscitation Status Routine Resus Stat 02/15/17 19:01 Ordered Medication Orders Sodium Chloride (Normal Saline) 1,000 mls @ 250 mls/hr IV ASDIRECTED ZHENG Last Admin: 02/15/17 17:49 Dose: 250 mls/hr Assessment/Plan Comment:: ASSESSMENT AND PLAN DEHYDRATION-poor oral intake over the past week, she tries to avoid liquids because of her urinary incontinence. -IV fluids for hydration CHRONIC KIDNEY DISEASE STAGE III WITH ACUTE INJURY-secondary to dehydration -Expect improvement with hydration -Closely monitor urine output and renal function during hospital stay SEVERE DEPRESSION-with associated anxiety, agitation, and paranoid ideation -Melatonin 9 mg by mouth each bedtime -Celexa 10 mg by mouth daily -Depakote 250 mg by mouth 3 times daily -May need to consider transfer to [facility] behavioral health unit -[facility] in a.m. URINARY TRACT INFECTION-no evidence of active infection on evaluation today -Discontinue antibiotic therapy MAINTENANCE ISSUES -DVT prophylaxis; Lovenox 30 mg subcutaneous daily -GI prophylaxis; not indicated -[place] catheter; not indicated -Nutrition; 2 g sodium diet -Nicotine dependence; not required CODE STATUS-FULL CODE ADMISSION STATUS-patient will be admitted to inpatient status, expect at least a 2 night hospital stay for evaluation and management of problems as outlined above. At the time of this admission I do not reasonably expected evaluation and management of this problem will require more than a 96 hour hospital stay. DISPOSITION-anticipate discharge to home after the hospital stay. PRIMARY CARE PROVIDER-Dr. Meneses
[2017-02-15] MEDS ORDERED: Ondansetron 4 MG/2 ML SDV IV PRN (20:08)
[2017-02-15] MEDS ORDERED: Polyethylene Glycol 3350 Powder 17 GM Packet PO PRN (20:08)
[2017-02-15] MEDS ORDERED: Sodium Chloride 0.9% 10 ML Syringe FLUSH PRN (20:08)
[2017-02-15] MEDS ORDERED: Albuterol 8 GM Inhaler INH PRN (20:08)
[2017-02-15] MEDS ORDERED: Magnesium Hydroxide 400 MG/5 ML Susp 30 ML Cup PO PRN (20:08)
[2017-02-15] MEDS ORDERED: Acetaminophen 325 MG Tab PO PRN (20:08)
[2017-02-15] MEDS ORDERED: Enoxaparin 30 MG/0.3 ML Syringe SUBCUT SCH (20:08)
[2017-02-15] MEDS ORDERED: Docusate Sodium 100 MG Cap PO PRN (20:08)
[2017-02-15] MEDS ORDERED: oxyCODONE 5 MG Tab PO PRN (20:08)
[2017-02-15] MEDS ORDERED: Acetaminophen/HYDROcodone 325-5 MG Tab PO PRN (20:08)
[2017-02-15] MEDS: Melatonin 3 MG Tab PO SCH ×2 (20:44→21:31)
[2017-02-15] MEDS ORDERED: Pentoxifylline 400 MG Tab.ER PO SCH (21:00)
[2017-02-15] MEDS: Colesevelam 625 MG Tab PO SCH (21:11)
[2017-02-16 07:52] VITALS: BP 174/67
[2017-02-16] MEDS: Pentoxifylline 400 MG Tab.ER PO SCH ×2 (07:59→14:13)
[2017-02-16] MEDS: Divalproex Sodium Delayed-Release 250 MG Tab.CR PO SCH ×2 (08:00→14:13)
[2017-02-16] MEDS ORDERED: Lisinopril 10 MG Tab PO SCH (09:00)
[2017-02-16] MEDS ORDERED: Calcitonin (Salmon) Nasal Spray 3.7 ML Bottle NAS SCH (09:00)
[2017-02-16] MEDS ORDERED: Citalopram 10 MG Tab PO SCH (09:00)
[2017-02-16] MEDS ORDERED: Metoprolol Tartrate 50 MG Tab PO SCH (09:00)
[2017-02-16] MEDS ORDERED: Allopurinol 300 MG Tab PO SCH (09:00)
[2017-02-16] MEDS ORDERED: Hydrochlorothiazide/Triamterene 25-37.5 MG Cap PO SCH (09:00)
[2017-02-16] MEDS: Colesevelam 625 MG Tab PO SCH (12:27)
--- NOTE | 2017-02-16 14:21 | PCM.DCSUM1 ---
Discharge Summary - Hospital Course Brief History: 89 -year-old female who presented with generalized weakness, dehydration and worsening depression symptoms. She was admitted for hydration and additional treatment for her depression. - Discharge Data Discharge Date: 02/16/17 Discharge Disposition: DC/Tfer to Psych Hosp/Unit 65 Condition: Poor - Discharge Diagnosis/Problem(s) (1) Severe major depression with psychotic features SNOMED Code(s): 93948236 ICD Code: F32.3 - MAJOR DEPRESSV DISORD, SINGLE EPSD, SEVERE W PSYCH FEATURES Status: Acute Current Visit: Yes - Patient Summary/Data Hospital Course: Rachel presented to the emergency room with generalized weakness and dehydration as well as concern about her worsening symptoms of depression. She has been struggling for the past couple of months with worsening feelings of sadness. She has not been sleeping well and has not been eating or drinking well. She has developed some psychotic features with hallucinations as well as nightmares that she has murdered her family. she has withdrawn from her friends. Because of her depression she has not been eating or drinking well and because of this she is now dehydrated. She has a small rise in her creatinine level from baseline. She was not felt safe to be treated as an outpatient yesterday during emergency room evaluation and was admitted to the hospital. She was started on IV fluids for dehydration. Regarding her mental health difficulties she was started on a low dose of citalopram as well as Depakote and melatonin. Day after admission her creatinine level has improved to near baseline. There is no evidence for infection. She continues to have difficulty with feelings of worthlessness and hopelessness. She feels that she has urinated her family. She continues to have paranoia as well as thoughts that she has permanently destroyed relationships with her family and with God. Friends who have visited her son say that this is a dramatic change from her baseline. I believe that she would benefit from a short inpatient stay at the [facility] for medication management. We did not find a medical cause for her difficulties during hospital stay and I suspect this is a manifestation of her depression which seems to be a fairly severe at this time and does contain some psychotic features. To be transferred there for further management. - Patient Instructions Diet: Regular Diet as Tolerated Activity: As Tolerated Showering/Bathing: May Shower Notify Provider of: Fever, Increased Pain, Nausea and/or Vomiting Other/Special Instructions: 1. You were in the hosptial for management of mild dehydration with poor oral intake as well as concerns for major depression with some psychotic features. I recommend transfer to the [facility] in [place] for further inpatient management and medication adjustments. - Discharge Plan Home Medications: Home Meds Allopurinol 300 mg PO DAILY 04/01/14 [History] Calcitonin ([place]) [Miacalcin Nasal [place]] 1 spray NS DAILY 04/01/14 [History] Cholecalciferol (Vitamin D3) [Vitamin D3] 2,000 unit PO DAILY 04/01/14 [History] Colesevelam [Welchol] 1,875 mg PO BID 04/01/14 [History] Flaxseed Oil [Flax Oil] 1,000 mg PO DAILY 04/01/14 [History] Metoprolol Tartrate 50 mg PO DAILY 04/01/14 [History] Mv, Min #36/Iron,Carbonyl/FA [Geritol Complete Tablet] 1 each PO DAILY 04/01/14 [History] [place]-3 Fatty Acids/Fish Oil [Fish Oil 1,200 mg Softgel] 1 each PO DAILY [History] Triamterene/Hydrochlorothiazid [Triamterene-HCTZ 75-50 MG] 0.5 each PO DAILY [History] Acetaminophen/HYDROcodone [[place] 325-5 MG] 1 - 2 tab PO Q6H PRN #30 tab [Rx] Garlic 100 mg PO DAILY 08/05/14 [History] Lisinopril 10 mg PO DAILY 08/05/14 [History] Albuterol [IMW: Albuterol HFA] 2 puff INH QID PRN 01/27/17 [History] Pentoxifylline [TRENtal] 400 mg PO TID 02/15/17 [History] Sulfamethoxazole/Trimethoprim [Bactrim Ds Tablet] 1 tab PO BID 02/15/17 [History ] Patient Handouts: Major Depressive Disorder Referrals: Oleksandr Meneses MD [Primary Care Provider] - (f/u after your stay in [place]) - Discharge Summary/Plan Comment DC Time >30 min.: Yes (40 - transfer to behavioral unit ) - Patient Data Vitals - Most Recent: Last Vital Signs Temp 35.3 C 02/16/17 07:49 Pulse 87 02/16/17 08:00 Resp 16 02/16/17 07:49 BP 174/67 H 02/16/17 08:01 Pulse Ox 95 02/16/17 07:49 Weight - Most Recent: 63.412 kg I&O - Last 24 hours: Intake & Output 02/15/17 02/16/17 02/16/17 22:59 06:59 14:59 Intake Total 798 1060 Balance 798 1060 Lab Results - Last 24 hrs: Laboratory Results - last 24 hr 02/16/17 02/16/17 Range/Units 05:18 05:18 Sodium 133 L (140-148) mmol/L Potassium 4.0 (3.6-5.2) mmol/L Chloride 100 (100-108) mmol/L Carbon Dioxide 26 (21-32) mmol/L Anion Gap 11.0 (5.0-14.0) mmol/L BUN 29 H (7-18) mg/dL Creatinine 1.4 H (0.6-1.0) mg/dL Est Cr Clr Drug Dosing 20.56 mL/min Estimated GFR (MDRD) 35 L (>60) Glucose 87 (74-106) mg/dL Calcium 9.5 (8.5-10.1) mg/dL TSH, Ultra Sensitive 0.556 (0.358-3.740) uIU/mL Med Orders - Current: Current Medications Acetaminophen (Tylenol) 650 mg PO Q4H PRN PRN Reason: Pain (Mild 1-3)/fever Hydrocodone Bitart/Acetaminophen ([place] 325-5 Mg) 1 - 2 tab PO Q6H PRN PRN Reason: Pain Albuterol (Ventolin Hfa) 0 gm INH QID PRN PRN Reason: Shortness of Breath Allopurinol (Zyloprim) 300 mg PO DAILY [facility] Last Admin: 02/16/17 08:02 Dose: 300 mg Calcitonin [place] (Miacalcin Nasal [place]) 0 ml CHUCK DAILY [facility] Last Admin: 02/16/17 08:01 Dose: 1 spray Citalopram Hydrobromide (Celexa) 10 mg PO DAILY [facility] Last Admin: 02/16/17 08:00 Dose: 10 mg Colesevelam HCl (Welchol) 0.5 mg PO BID [facility] Last Admin: 02/16/17 12:27 Dose: Not Given Divalproex Sodium (Divalproex Sodium) 250 mg PO TIDMEALS [facility] Last Admin: 02/16/17 14:13 Dose: 250 mg Docusate Sodium (Colace) 100 mg PO BID PRN PRN Reason: Constipation Enoxaparin Sodium (Lovenox) 30 mg SUBCUT BEDTIME [facility] Lisinopril (Prinivil) 10 mg PO DAILY [facility] Last Admin: 02/16/17 08:01 Dose: 10 mg Magnesium Hydroxide (Milk Of Magnesia) 30 ml PO Q12H PRN PRN Reason: Constipation Melatonin (Melatonin) 9 mg PO BEDTIME [facility] Last Admin: 02/15/17 21:31 Dose: 9 mg Metoprolol Tartrate (Lopressor) 50 mg PO DAILY [facility] Last Admin: 02/16/17 08:00 Dose: 50 mg Ondansetron HCl (Zofran) 4 mg IV Q4H PRN PRN Reason: Nausea/Vomiting Oxycodone HCl (Oxycodone) 5 mg PO Q4H PRN PRN Reason: Pain (moderate 4-6) Pentoxifylline (Trental) 400 mg PO TIDMEALS [facility] Last Admin: 02/16/17 14:13 Dose: 400 mg Polyethylene Glycol (Miralax) 17 gm PO DAILY PRN PRN Reason: Constipation Sodium Chloride (Saline Flush) 10 ml FLUSH ASDIRECTED PRN PRN Reason: Keep Vein Open Triamterene/HCTZ (Dyazide 25-37.5 Mg) 1 each PO DAILY [facility] Last Admin: 02/16/17 08:00 Dose: 1 each Discontinued Medications Enoxaparin Sodium (Lovenox) 30 mg SUBCUT DAILY [facility] Last Admin: 02/15/17 21:30 Dose: 30 mg Sodium Chloride (Normal Saline) 1,000 mls @ 250 mls/hr IV ASDIRECTED [facility] Last Admin: 02/15/17 17:49 Dose: 250 mls/hr Sodium Chloride (Normal Saline) 1,000 mls @ 100 mls/hr IV ASDIRECTED [facility] Pentoxifylline (Trental) 400 mg PO TID [facility] Last Admin: 02/15/17 21:10 Dose: Not Given - Exam General: Reports: alert, oriented, cooperative, mild distress HEENT: Reports: Pupils equal Neck: Reports: supple Lungs: Reports: Normal respiratory effort Cardiovascular: Reports: Regular Rate, Regular Rhythm Abdomen: Reports: soft, no distension Skin: Reports: warm, dry Psy/Mental Status: Reports: alert, labile mood, anxious. Denies: suicidal ideation, homicidal ideation *Q Meaningful Use (DIS) - VTE *Q VTE Criteria *Q: - Stroke *Q Stroke Criteria *Q: - AMI *Q AMI Criteria *Q:
[2017-02-16] MEDS ORDERED: Enoxaparin 30 MG/0.3 ML Syringe SUBCUT SCH (21:00)
== END 2017-02-16 16:03 | DRG 885 ==
LOC: JP.ED 15:12 → JP.MS 18:57 → UNDOADMIN 18:57 → JP.MS 20:08 → UNDODISIN 02-16 16:03
PROVIDERS: ADMIT Hospitalist; ATTEND Internal Medicine
DX: F32.3 Major depressive disorder, single episode, severe with psychotic features (principal); N17.9 Acute kidney failure, unspecified; E86.0 Dehydration; I12.9 Hypertensive chronic kidney disease with stage 1 through stage 4 chronic kidney disease, or unspecified chronic kidney disease; N18.3 Chronic kidney disease, stage 3 (moderate); E11.22 Type 2 diabetes mellitus with diabetic chronic kidney disease; Z87.891 Personal history of nicotine dependence; D64.9 Anemia, unspecified; R45.1 Restlessness and agitation; M19.90 Unspecified osteoarthritis, unspecified site; E78.00 Pure hypercholesterolemia, unspecified; Z88.0 Allergy status to penicillin; Z85.41 Personal history of malignant neoplasm of cervix uteri; Z85.3 Personal history of malignant neoplasm of breast; Z85.820 Personal history of malignant melanoma of skin; Z85.72 Personal history of non-Hodgkin lymphomas; H35.30 Unspecified macular degeneration
CPT/HCPCS: 36415; 80053; 81001; 83880; 85025; 96360; 96361; 99284; J7040; 80048; 84443; A9270-GY; J1650

== ENCOUNTER 2017-02-26 21:09 | Emergency (ER) | payer MEDICARE, BC ==
--- NOTE | 2017-02-26 21:56 | EDM.PDOC ---
ED HPI GENERAL MEDICAL PROBLEM - General Chief Complaint: General Stated Complaint: LEG IS SWOLLEN Time Seen by Provider: 02/26/17 21:43 Source of Information: Reports: Patient, Family (son), Old Records History Limitations: Reports: Other (limited understading, age) - History of Present Illness INITIAL COMMENTS - FREE TEXT/NARRATIVE: Brought by her son, with whom she lives Chief complaint: Left leg swelling History of present illness 89-year-old female with history of some osteoarthritis fluid retention anxiety hypertension Onset of "odd FEELING" left leg this afternoon and swelling left foot and ankle noted this evening No chest or abdominal pain No shortness of breath No leg pain No recent injury She has a superficial scratch on the leg and her left big toenail History of peripheral arterial disease as well. Denies Pain Score (Numeric/FACES): 0 - Related Data Allergies Allergy/AdvReac Type Severity Reaction Status Date / Time Penicillins Allergy Rash Verified 02/26/17 21:37 Home Meds: Home Meds Allopurinol 300 mg PO DAILY 04/01/14 [History] Calcitonin (Vadito) [Miacalcin Nasal Coats] 1 spray NS DAILY 04/01/14 [History] Cholecalciferol (Vitamin D3) [Vitamin D3] 2,000 unit PO DAILY 04/01/14 [History] Colesevelam [Welchol] 1,875 mg PO BID 04/01/14 [History] Flaxseed Oil [Flax Oil] 1,000 mg PO DAILY 04/01/14 [History] Metoprolol Tartrate 37.5 mg PO DAILY 04/01/14 [History] Mv, Min #36/Iron,Carbonyl/FA [Geritol Complete Tablet] 1 each PO DAILY 04/01/14 [History] Gypsum-3 Fatty Acids/Fish Oil [Fish Oil 1,200 mg Softgel] 1 each PO DAILY [History] Triamterene/Hydrochlorothiazid [Triamterene-HCTZ 75-50 MG] 0.5 each PO DAILY [History] Acetaminophen/HYDROcodone [Wilton 325-5 MG] 1 - 2 tab PO Q6H PRN #30 tab [Rx] Garlic 100 mg PO DAILY 08/05/14 [History] Albuterol [IMW: Albuterol HFA] 2 puff INH QID PRN 01/27/17 [History] Pentoxifylline [TRENtal] 400 mg PO TID 02/15/17 [History] Clindamycin HCl [Cleocin] 150 mg PO TID 02/26/17 [History] Escitalopram [Lexapro] 10 mg PO DAILY 02/26/17 [History] Mirtazapine [Remeron] 15 mg PO BEDTIME PRN 02/26/17 [History] Past Medical History HEENT History: Reports: Cataract, Hard of Hearing, Macular Degeneration, Other ( See Below) Other HEENT History: "bleeding above the right eye" Cardiovascular History: Reports: Hypertension Gastrointestinal History: Reports: Chronic Diarrhea, GERD Other Genitourinary History: stage 3 kidney disease 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: Other (See Below) Other OB/BYN History: cervical cancer Musculoskeletal History: Reports: Gout, Osteoarthritis, Osteoporosis Neurological History: Reports: Headaches, Chronic Endocrine/Metabolic History: Reports: Diabetes, Type II Hematologic History: Reports: Anemia, Iron Deficiency Oncologic (Cancer) History: Reports: Breast, Cervix, Lymphoma, Malignant Melanoma - Infectious Disease History Infectious Disease History: Reports: Chicken Pox, Measles - Past Surgical History HEENT Surgical History: Reports: Cataract Surgery GI Surgical History: Reports: Colonoscopy Female Surgical History: Reports: Mastectomy, Salpingo-Oophorectomy, Other ( See Below) Other Female Surgeries/Procedures: bilateral mastectomy Oncologic Surgical History: Reports: Mastectomy Social & Family History - Tobacco Use Smoking Status *Q: Never Smoker Years of Tobacco use: 30 Used Tobacco, but Quit: Yes Month Tobacco Last Used: 1979 Second Hand Smoke Exposure: No - Caffeine Use Caffeine Use: Reports: Coffee Other Caffeine Use: LOTS of coffee - Alcohol Use Days Per Week of Alcohol Use: 0 Number of Drinks Per Day: 2 Total Drinks Per Week: 0 - Recreational Drug Use Recreational Drug Use: No ED ROS GENERAL - Review of Systems Review Of Systems: See Below Constitutional: Reports: No Symptoms HEENT: Reports: No Symptoms Respiratory: Reports: No Symptoms Cardiovascular: Reports: Blood Pressure Problem, Edema (Left leg much worse than right leg). Denies: Lightheadedness, Syncope Endocrine: Reports: No Symptoms GI/Abdominal: Reports: No Symptoms : Reports: No Symptoms Musculoskeletal: Reports: Joint Pain (Generalized achiness), Muscle Pain Neurological: Reports: No Symptoms Psychiatric: Reports: Anxiety ED EXAM, GENERAL - Physical Exam Exam: See Below Exam Limited By: No Limitations General Appearance: Alert, Anxious, Mild Distress Eye Exam: Bilateral Eye: Normal Inspection Ears: Normal External Exam, Hearing Loss (Mild, chronic) Head: Atraumatic, Normocephalic Neck: Normal Inspection. No: Lymphadenopathy (R), Lymphadenopathy (L) Respiratory/Chest: No Respiratory Distress, Lungs Clear, No Accessory Muscle Use Cardiovascular: Regular Rate, Rhythm, No Murmur, Other (No carotid bruit) GI/Abdominal: Non-Tender Extremities: Non-Tender, Pedal Edema (Left foot and ankle much worse than right ankle), Other (Normal temperature). No: Increased Warmth, Pallor Neurological: Alert, No Motor/Sensory Deficits Psychiatric: Anxious Skin Exam: Warm, Dry, Normal Color Lymphatic: No Adenopathy Course - Vital Signs Last Recorded V/S: Last Vital Signs Temp 37 C 02/26/17 21:36 Pulse 71 02/26/17 21:36 Resp 20 02/26/17 21:36 BP 125/87 02/26/17 21:36 Pulse Ox 99 02/26/17 21:36 - Orders/Labs/Meds Orders: Active Orders 24 hr Category Date Time Status VL Duplex Lwr Ext Veins Ltd Lt [US] Stat Exams 02/26/17 21:56 Ordered Labs: Laboratory Tests 02/26/17 02/26/17 Range/Units 22:05 22:05 WBC 7.4 (4.5-11.0) K/uL RBC 3.55 (3.30-5.50) M/uL Hgb 10.1 L (12.0-15.0) g/dL Hct 30.0 L (36.0-48.0) % MCV 85 (80-98) fL MCH 29 (27-31) pg MCHC 34 (32-36) % Plt Count 231 (150-400) K/uL Sodium 128 L (140-148) mmol/L Potassium 4.1 (3.6-5.2) mmol/L Chloride 94 L (100-108) mmol/L Carbon Dioxide 26 (21-32) mmol/L Anion Gap 12.1 (5.0-14.0) mmol/L BUN 26 H (7-18) mg/dL Creatinine 1.3 H (0.6-1.0) mg/dL Est Cr Clr Drug Dosing 22.14 mL/min Estimated GFR (MDRD) 39 L (>60) Glucose 112 H (74-106) mg/dL Calcium 10.2 H (8.5-10.1) mg/dL - Re-Assessments/Exams Free Text/Narrative Re-Assessment/Exam: 02/26/17 22:02 89-year-old female with new onset of edema of left leg without significant discomfort. Vital signs are stable and within normal limits Labs and ultrasound of the leg ordered 02/26/17 22:52 Doppler left leg negative for DVT Sodium is 128 BUNs 26 creatinine 1.3 and hemoglobin 10.1, all potential causes of her edema, all not significantly changed from previous. Increasing diuretic is unlikely be helpful More helpful would be increasing protein in diet, elevation of the legs and the use of pressure stockings which she does use. Follow-up with primary care 1-2 weeks Departure - Departure Time of Disposition: 22:50 Disposition: Home, Self-Care 01 Preliminary Cause of *Q: sepsis & multi system organ failure Condition: fair Clinical Impression: Lymphedema of both lower extremities - Discharge Information Instructions: Lymphedema Referrals: Oleksandr Meneses MD [Primary Care Provider] - Forms: ED Department Discharge Additional Instructions: You have several causes for swelling in the legs including low sodium low hemoglobin and decreased kidney function. Diuretics do not always help this. Your more likely to get better help from making sure you have enough protein in your diet, use pressure stockings and elevate her legs at the end of the day Have your physician recheck your legs in the next 1-2 weeks - My Orders Last 24 Hours: My Active Orders 02/26/17 21:56 VL Duplex Lwr Ext Veins Ltd Lt [US] Stat - Assessment/Plan Last 24 Hours: My Active Orders 02/26/17 21:56 VL Duplex Lwr Ext Veins Ltd Lt [US] Stat
[2017-02-26 23:01] VITALS: BP 173/66
--- NOTE | 2017-02-27 08:04 | US ---
VL Duplex Lwr Ext Veins Ltd Lt INDICATION: increased swelling left leg; hx PAD FINDINGS: Ultrasound examination of the lower extremity using Doppler and compressive technique demo nstrates that the common femoral, femoral, and popliteal veins are patent, and negative for thrombus . The calf veins were segmentally visualized and are negative where seen. IMPRESSION: Negative for deep venous thrombosis.
== END 2017-02-26 23:02 | disposition home or self-care (01) ==
LOC: JP.ED 21:09
DX: I89.0 Lymphedema, not elsewhere classified (principal); E11.9 Type 2 diabetes mellitus without complications; I12.9 Hypertensive chronic kidney disease with stage 1 through stage 4 chronic kidney disease, or unspecified chronic kidney disease; N18.3 Chronic kidney disease, stage 3 (moderate); M19.90 Unspecified osteoarthritis, unspecified site; M18.0 Bilateral primary osteoarthritis of first carpometacarpal joints; K21.9 Gastro-esophageal reflux disease without esophagitis; Z90.710 Acquired absence of both cervix and uterus; Z98.49 Cataract extraction status, unspecified eye; Z98.890 Other specified postprocedural states; Z79.899 Other long term (current) drug therapy; Z88.0 Allergy status to penicillin; Z79.2 Long term (current) use of antibiotics; D64.9 Anemia, unspecified; M10.9 Gout, unspecified
CPT/HCPCS: 36415; 80048; 85027; 93971-26-LT; 93971-LT; 99283; 99284-25